=== PATIENT | female | born 2000 | race American Indian/Alaskan Native ===

== ENCOUNTER 2021-03-05 16:42 | Emergency (ER) | payer MEDICAID ==
[2021-03-05 19:18] VITALS: BP 113/88
--- NOTE | 2021-03-05 19:21 | Emergency Department Report ---
ED Extremity Problem HPI - General Chief complaint: Extremity Problem,Nontraumatic Stated complaint: LT LEG PAINS Time Seen by Provider: 03/05/21 19:10 Source: patient Mode of arrival: Ambulatory Limitations: No Limitations - History of Present Illness Initial comments: Patient is a 20-year-old female presents emergency room with points of bilateral feet and bilateral heel pain that began a week ago. She denies any fall or injury. 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 She states that she does have a history of Achilles tendinitis. She denies any leg swelling, numbness, weakness, calf pain. Past medical history of asthma. No allergies medications. Last menstrual cycle 02/15/2021. - Related Data Previous Rx's Medication Instructions Recorded Last Taken Type Menthol/Camphor [[place] 1 applicatio TP BID #18 oint...g. 03/05/21 Unknown Rx Ointment] Naproxen [EC-Naprosyn] 375 mg PO BID PRN #14 tablet. 03/05/21 Unknown Rx Allergies Allergy/AdvReac Type Severity Reaction Status Date / Time No Known Allergies Allergy Unverified 03/05/21 18:03 ED Review of Systems ROS: Stated complaint: LT LEG PAINS Other details as noted in HPI Comment: All other systems reviewed and negative ED Past Medical Hx - Past Medical History Previous Medical History?: Yes Hx Hypertension: Yes Hx Asthma: Yes - Surgical History Past Surgical History?: No - Medications Home Medications: Home Medications Medication Instructions Recorded Confirmed Last Taken Type Menthol/Camphor [[place] 1 applicatio TP BID #18 oint...g. 03/05/21 Unknown Rx Ointment] Naproxen [EC-Naprosyn] 375 mg PO BID PRN #14 tablet. 03/05/21 Unknown Rx ED Physical Exam - General Limitations: No Limitations General appearance: alert, in no apparent distress - Head Head exam: Present: atraumatic, normocephalic - Eye Eye exam: Present: normal appearance - ENT ENT exam: Present: mucous membranes moist - Extremities Exam Extremities exam: Present: full ROM, normal capillary refill, other (ttp to the bilateral heels and feet on the plantar surface, no deformity, no crepitus, no edema, no ecchymosis, no skin changes, FROM of the BLE, neurovascularly intact). Absent: pedal edema, joint swelling, calf tenderness - Neurological Exam Neurological exam: Present: alert, oriented X3 - Psychiatric Psychiatric exam: Present: normal affect, normal mood - Skin Skin exam: Present: warm, dry, intact ED Course Vital Signs 03/05/21 18:02 Temperature 99.3 F Pulse Rate 72 Respiratory 18 Rate Blood Pressure 113/88 O2 Sat by Pulse 99 Oximetry ED Medical Decision Making - Medical Decision Making Patient is a 20-year-old female presents emergency room with points of bilateral feet and bilateral heel pain that began a week ago. She denies any fall or injury. 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 She states that she does have a history of Achilles tendinitis. She denies any leg swelling, numbness, weakness, calf pain. Past medical history of asthma. No allergies medications. Last menstrual cycle 02/15/2021. Vitals are normal. On exam:ttp to the bilateral heels and feet on the plantar surface, no deformity, no crepitus, no edema, no ecchymosis, no skin changes, FROM of the BLE, neurovascularly intact. Symptoms and examination appear most consistent with plantar fasciitis. Patient has had no acute trauma. She has no clinical signs of DVT, septic joint, gout. Advised patient Please use medication as prescribed. may roll a tennis ball underneath your foot. May freeze a water bottle and roll underneath your foot. May use splints [id number] at night specifically for plantar fasciitis. May get orthopedic inserts for your shoes. Follow-up with orthopedic doctor. Return to emergency room for any new or worsening symptoms. Critical care attestation.: If time is entered above; I have spent that time in minutes in the direct care of this critically ill patient, excluding procedure time. ED Disposition Clinical Impression: Pain in both feet Heel pain Qualifiers: Laterality: bilateral Qualified Code(s): M79.671 - Pain in right foot Disposition: -01 TO HOME OR SELFCARE Is pt being admited?: No Does the pt Need Aspirin: No Condition: Stable Instructions: Plantar Fasciitis Additional Instructions: Please use medication as prescribed. may roll a tennis ball underneath your foot. May freeze a water bottle and roll underneath your foot. May use splints [id number] at night specifically for plantar fasciitis. May get orthopedic inserts for your shoes. Follow-up with orthopedic doctor. Return to emergency room for any new or worsening symptoms. Prescriptions: Naproxen [EC-Naprosyn] 375 mg PO BID PRN #14 tablet.dr GONZALES Reason: pain Menthol/Camphor [[place] Ointment] 1 applicatio TP BID #18 oint...g. Referrals: KYAW BALDERRAMA MD [Staff Physician] - 2-3 Days [facility] [Provider Group] - 2-3 Days Forms: Work/School Release Form(ED) Time of Disposition: 19:19 Print Language: SINHAL[place]
== END 2021-03-05 19:25 | disposition home or self-care (01) ==
LOC: ED 16:42
DX: M79.672 Pain in left foot (principal); M79.671 Pain in right foot; I10 Essential (primary) hypertension; J45.909 Unspecified asthma, uncomplicated; Z79.899 Other long term (current) drug therapy
CPT/HCPCS: 99281